=== PATIENT | female | born 2000 ===

== ENCOUNTER 2024-09-29 06:32 | Outpatient (REF) | payer OTHER, SELFPAY ==
--- NOTE | ~2024-09-29 | US_ITS ---
EXAMINATION: US PELVIS COMPLETE CLINICAL INFORMATION: HEAVY BLEEDING X 3 MONTHS. COMPARISON: None TECHNIQUE: Transabdominal images of the pelvis were obtained. Color and spectral Doppler evaluation of the ovaries was performed. FINDINGS: UTERUS: Anteverted. Normal size and contour, measuring 9.6 x 2.8 x 3.7 cm (cervix to fundus x AP x transverse). Uniform, homogeneous endometrium measures 0.3 cm in width. RIGHT OVARY: Normal size and echogenicity measuring 3.9 x 1.9 x 2.3 cm. Physiologic follicle noted. LEFT OVARY: Normal size and echogenicity measuring 3.6 x 1.8 x 3.3 cm. Arterial and venous waveforms are identified in both ovaries on spectral Doppler assessment. FREE FLUID: No pelvic free fluid. US/US pelvic and transvaginal IMPRESSION: No acute abnormality on transabdominal sonographic exam of the pelvis. Electronically signed by: Aide Tatum DO 09/30/2024 01:[address] [facility] [place]
== END 2024-09-29 06:33 | disposition home or self-care (01) ==
LOC: HO.UMASIMG 06:32
PROVIDERS: Visit Provider Nurse Practitioner Women's Health
DX: N92.6 Irregular menstruation, unspecified (principal)
CPT/HCPCS: 76830; 76856